=== PATIENT | male | born 1970 | race Caucasian/White ===

== ENCOUNTER 2022-01-11 18:20 | Emergency (ER) | payer BC, MEDICAID, MEDICARE ==
[~2022-01-11] VITALS: Ht 182.9 cm; Wt 82.1 kg
[~2022-01-11 18:20] MED LIST: AMLO5TAB PO; ATOR40TA PO; FAMO-90 PO; HYDR-4004 PO; LOSA100T51 PO; METF-346 PO; PAX20 PO; WARF6TAB41 PO
[2022-01-11 18:30] VITALS: BP 182/115
--- NOTE | 2022-01-11 18:50 | NUR ---
51 Y/O MALE BIB SELF C/O SNEEZING AND RUNNY NOSE, "NO SLEEP" LAST NIGHT. DENIES HEADACHE, COUGHING, SOB, CHEAT PAIN, BILATERAL LUNG SOUNDS CLEAR. DENIES ANY MEDICATION FOR THE RUNNY NOSE/SNEEZING. PMH: HTN, DM2, CVA 11MONTHS AGO [facility]
--- NOTE | 2022-01-11 18:56 | NUR ---
DR ISAAC AT BEDSIDE FOR EVAL
[2022-01-11] MEDS ORDERED: ROB PO (19:03)
[2022-01-11] MEDS ORDERED: ACET-2619 PO (19:03)
[2022-01-11] MEDS: ACETAMINOPHEN EXTRA STRENGTH 500 MG TAB PO ONE (19:11)
--- NOTE | 2022-01-11 19:12 | NUR ---
Pt report given to MARIO BANUELOS. Transfer of care at this time.
--- NOTE | 2022-01-11 19:13 | NUR ---
SWABS WALKED TO LAB
[2022-01-11] MEDS: guaiFENesin 20 MG/ML UDC PO ONE (19:18)
--- NOTE | 2022-01-11 19:51 | NUR ---
Patient discharged with v/s stable. Written and verbal after care instructions given and explained. Patient alert, oriented and verbalized understanding of instructions. Ambulatory with steady gait. All questions addressed prior to discharge. ID band removed. Patient advised to follow up with PMD. Rx of TYLENOL AND ROBITUSSIN given. Patient educated on indication of medication including possible reaction and side effects. Opportunity to ask questions provided and answered. VSS, A/OX4, UNLABORED BREATHING, AMBULATORY, AND CALM DEMEANOR.
[2022-01-11 19:52] VITALS: BP 155/99
== END 2022-01-11 19:51 | disposition home or self-care (01) ==
LOC: MED 18:20
DX: J06.9 Acute upper respiratory infection, unspecified (principal); I10 Essential (primary) hypertension; E11.9 Type 2 diabetes mellitus without complications; Z86.73 Personal history of transient ischemic attack (TIA), and cerebral infarction without residual deficits; Z20.822 Contact with and (suspected) exposure to COVID-19; Z79.899 Other long term (current) drug therapy
CPT/HCPCS: 99283

== ENCOUNTER 2022-07-21 15:09 | Emergency (ER) | payer BC ==
[~2022-07-21] VITALS: Ht 177.8 cm; Wt 72.6 kg
[~2022-07-21 15:09] MED LIST changes: +ACET-2619 PO; +ROB PO
[2022-07-21 15:18] VITALS: BP 144/91
--- NOTE | 2022-07-21 17:00 | NUR ---
PATIENT LEFT WITHOUT BEING SEEN BY BENSON MARIN. NO FURTHER CARE PROVIDED FOR PATIENT.
--- NOTE | 2022-07-21 17:00 | NUR ---
NO ANSWER IN LOBBY BY BENSON MARIN
--- NOTE | 2022-07-21 17:15 | NUR ---
SECOND NO ANSWER
--- NOTE | 2022-07-21 17:35 | NUR ---
3RD NO ANSWER
== END 2022-07-21 17:00 | disposition left against medical advice (07) ==
LOC: MED 15:09
DX: M25.532 Pain in left wrist (principal); Z53.21 Procedure and treatment not carried out due to patient leaving prior to being seen by health care provider
CPT/HCPCS: 73110